=== PATIENT | male | born 1940 | race Caucasian/White ===

== ENCOUNTER → 2016-08-31 | Outpatient (CLI) | payer MEDICARE, OTHER ==
[~2016-08-31] MED LIST: ASPI325T PO; ATOR1TAB18 PO; CHOL1TAB29; FENO145T2 PO; FINA5TAB2 PO; ISOS60TA PO; LANS30CA PO; METO25TA3 PO; MULTTAB12; PROS5TAB PO; VESI5TAB PO
[2016-08-31 10:14] LABS: BLOOD GAS BASE EXCESS 0.1 mmol/L (-2-2); BLOOD GAS CARBOXYHEMOGLOBIN 1.7 % (0-4); BLOOD GAS HCO3 24 mmol/L (22-26); BLOOD GAS O2 HGB SATURATION 96 % (90-100); BLOOD GAS OXYGEN CONTENT 18.3 Vol % (12.0-20.0); BLOOD GAS PCO2 35 mmHG (38-42); BLOOD GAS PO2 94 mmHG (61-120); BLOOD GAS TOTAL HGB 13.6 G/DL (12.0-16.0); CRITICAL VALUE NO; DRAW SITE RT RADIAL; FIO2 21 %; NUMBER OF ARTERIAL PUNCTURES 1; STAT NO; TEMP CORR TO 98.6; ULNAR PULSE PRESENT
--- NOTE | 2016-09-01 08:06 | RSPPFT ---
DATE OF PROCEDURE: 08/31/16 COMMENTS: Spirometry shows FVC of 3.2 at 94% of predicted, FEv1 of 2.3 at 102%, FEV1/FVC ratio is normal. Flow is decreased at FEF 25, FEF 50, FEF 75 and FEF 25-75. There is a paradoxical response to acutely inhaled bronchodilator treatment. Lung volumes show residual volume is normal. TLC is normal. Diffusion capacity is mildly decreased. Flow volume loop indicates terminal airways obstruction. Room air arterial blood gases show pH of 7.4, PCO2 of 30, PO2 of 94, BiCarb of 24 and Saturation at 96%. 6-minute walk test shows no de-saturation. IMPRESSION: 1. Normal spirometry. 2. Mild small airways obstructive lung disease. 3. Paradoxical response to bronchodilator treatment. 4. Mild diffusion decrease. 5. Blood gases show normal oxygenation. 6. No de-saturation with ambulation.
== END ==
LOC: PHRSP 09:33
PROVIDERS: ATTEND Specialist
DX: R06.00 Dyspnea, unspecified (principal)
CPT/HCPCS: 36600; 82805; 94060; 94620; 94726; 94729